=== PATIENT | female | born 1985 | race Caucasian/White ===

== ENCOUNTER 2021-05-24 22:21 | Emergency (ER) | payer OTHER ==
[~2021-05-24] VITALS: Ht 165.1 cm; Wt 81.7 kg
[2021-05-24 23:31] LABS: BASOPHILS ABSOLUTE AUTO 0.03 K/mm3 (0.00-0.23); BASOPHILS PERCENT AUTO 0 % (0-2); EOSINOPHILS ABSOLUTE AUTO 0.09 K/mm3 (0.00-0.68); EOSINOPHILS PERCENT AUTO 1 % (0-6); Hematocrit 39.8 % (33.0-51.0); IMMATURE GRAN ABSOLUTE AUTO 0.03 K/mm3 (0.00-0.10); IMMATURE GRAN PERCENT AUTO 0 % (0-1); LYMPHOCYTES ABSOLUTE AUTO 2.64 K/mm3 (0.84-5.20); LYMPHOCYTES PERCENT AUTO 24 % (21-46); MONOCYTES ABSOLUTE AUTO 0.87 K/mm3 (0.16-1.47); MONOCYTES PERCENT AUTO 8 % (4-13); Mean Corpuscular HGB 26.2 pg (26.0-34.0); Mean Corpuscular HGB Conc 32.7 g/dL (31.5-36.5); Mean Corpuscular Volume 80 fL (80-100); Mean Platelet Volume 9.4 fL (9.1-12.4); NEUTROPHILS ABSOLUTE AUTO 7.21 K/mm3 (1.96-9.15); NEUTROPHILS PERCENT AUTO 66 % (41-73); Platelet Count 394 K/mm3 (150-400); RDW Coefficient Variation 16.9 % (11.7-14.2); RDW Standard Deviation 48.4 fL (35.1-46.3); Red Blood Cell Count 4.96 M/mm3 (3.80-5.20); White Blood Cell Count 10.87 K/mm3 (4.00-11.30)
[2021-05-24 23:52] LABS: Alanine Aminotransfer (ALT/SGP 15 U/L (12-78); Albumin/Globulin Ratio 0.8 (0.8-1.8); Alk Phos 73 U/L (50-136); Anion Gap 6 mmol/L (6-16); Aspartate Aminotrans (AST/SGOT <3 U/L (12-37); Bilirubin, Total 0.4 mg/dL (0.1-1.0); Blood Urea Nitrogen 17 mg/dL (8-24); Bun/Creatinine Ratio 22.3 (12.0-20.0); CO2, Blood 25 mmol/L (21-32); Calcium, Blood 8.8 mg/dL (8.5-10.1); Chloride, Blood 108 mmol/L (98-108); Creatinine, Blood 0.76 mg/dL (0.40-1.00); Globulin, Blood 3.9 g/dL (2.2-4.0); Glomerular Filtration Rate >60 (60-); Glucose, Blood 122 mg/dL (70-99); Potassium, Blood 2.9 mmol/L (3.5-5.5); Sodium, Blood 139 mmol/L (136-145); Total Protein, Blood 6.9 g/dL (6.4-8.2)
[2021-05-25] MEDS ORDERED: PRED20 PO (02:16)
== END 2021-05-25 03:20 | disposition home or self-care (01) ==
LOC: ER 22:21
PROVIDERS: Student in an Organized Health Care Education/Training Program
DX: N83.202 Unspecified ovarian cyst, left side (principal); K50.90 Crohn's disease, unspecified, without complications; K92.1 Melena; Z88.6 Allergy status to analgesic agent
CPT/HCPCS: 74177; 76856; 80053; 82272; 84703; 85025; 85651; 86141; 86850; 86900; 86901; 96365; 96366; 96375; 96376; 99285-25; A9270; J1170; J2270; J2405; J3480; J7030; J7512; Q9967

== ENCOUNTER 2021-05-28 14:00 | Inpatient (IN) | payer OTHER ==
[~2021-05-28] VITALS: Ht 165.1 cm; Wt 79.7 kg
[~2021-05-28 14:00] MED LIST: PRED20 PO
[2021-05-28] MEDS ORDERED: AMOX500 PO (14:12)
[2021-05-28] MEDS ORDERED: ONDA4ODT MM (14:13)
[2021-05-28] MEDS ORDERED: DICY20 PO (14:13)
[2021-05-28] MEDS ORDERED: CATAPRES0.1 MG PO (14:13)
[2021-05-28] MEDS ORDERED: HYDPAM50 PO (14:14)
[2021-05-28] MEDS ORDERED: TRAZ50 PO (14:14)
[2021-05-28 14:44] LABS: BASOPHILS ABSOLUTE AUTO 0.03 K/mm3 (0.00-0.23); BASOPHILS PERCENT AUTO 0 % (0-2); EOSINOPHILS ABSOLUTE AUTO 0.05 K/mm3 (0.00-0.68); EOSINOPHILS PERCENT AUTO 1 % (0-6); Hematocrit 40.6 % (33.0-51.0); IMMATURE GRAN ABSOLUTE AUTO 0.02 K/mm3 (0.00-0.10); IMMATURE GRAN PERCENT AUTO 0 % (0-1); LYMPHOCYTES ABSOLUTE AUTO 1.93 K/mm3 (0.84-5.20); LYMPHOCYTES PERCENT AUTO 21 % (21-46); MONOCYTES ABSOLUTE AUTO 0.74 K/mm3 (0.16-1.47); MONOCYTES PERCENT AUTO 8 % (4-13); Mean Corpuscular HGB 26.5 pg (26.0-34.0); Mean Corpuscular Volume 83 fL (80-100); Mean Platelet Volume 8.7 fL (9.1-12.4); NEUTROPHILS ABSOLUTE AUTO 6.44 K/mm3 (1.96-9.15); NEUTROPHILS PERCENT AUTO 70 % (41-73); Platelet Count 397 K/mm3 (150-400); RDW Coefficient Variation 16.9 % (11.7-14.2); RDW Standard Deviation 50.8 fL (35.1-46.3); Red Blood Cell Count 4.91 M/mm3 (3.80-5.20); White Blood Cell Count 9.21 K/mm3 (4.00-11.30)
[2021-05-28 15:03] LABS: Alanine Aminotransfer (ALT/SGP 19 U/L (12-78); Albumin/Globulin Ratio 0.8 (0.8-1.8); Alk Phos 69 U/L (50-136); Anion Gap 4 mmol/L (6-16); Aspartate Aminotrans (AST/SGOT 8 U/L (12-37); Bilirubin, Total 0.2 mg/dL (0.1-1.0); Blood Urea Nitrogen 9 mg/dL (8-24); Bun/Creatinine Ratio 16.9 (12.0-20.0); CO2, Blood 27 mmol/L (21-32); Calcium, Blood 8.9 mg/dL (8.5-10.1); Chloride, Blood 107 mmol/L (98-108); Creatinine, Blood 0.53 mg/dL (0.40-1.00); Globulin, Blood 3.8 g/dL (2.2-4.0); Glomerular Filtration Rate >60 (60-); Glucose, Blood 146 mg/dL (70-99); Sodium, Blood 138 mmol/L (136-145); Total Protein, Blood 6.8 g/dL (6.4-8.2)
--- NOTE | 2021-05-28 20:04 | NUR ---
TRANSFER NOTE REPORT FROM DAVEY SANABRIA RN. PT TO ROOM BY CHRIS. PT AMBULATES FROM HALLWAY TO BED WITHOUT DIFFICULTY. PT ORIENTED TO CALL LIGHT, ROOM, AND UNIT. CALL LIGHT IN REACH. BED IN LOWEST POSITION.
[2021-05-28 23:22] LABS: Adenovirus F 40/41 Not Detected (NOT DETECT); Astrovirus Not Detected (NOT DETECT); Campylobacter Sp Not Detected (NOT DETECT); Cryptosporidium Not Detected (NOT DETECT); Cyclospora Cayetanensis Not Detected (NOT DETECT); E. Coli O157 Not Detected (NOT DETECT); Entamoeba Histolytica Not Detected (NOT DETECT); Enteroaggregative E. coli-EAEC Not Detected (NOT DETECT); Enteropathogenic E. coli-EPEC Not Detected (NOT DETECT); Enterotoxigenic E. coli-ETEC Not Detected (NOT DETECT); Giardia Lamblia Not Detected (NOT DETECT); Norovirus GI/GII Not Detected (NOT DETECT); Plesiomonas Shigelloides Not Detected (NOT DETECT); Rotavirus A Not Detected (NOT DETECT); Salmonella Sp Not Detected (NOT DETECT); Sapovirus Not Detected (NOT DETECT); Shiga Toxin-prod E. coli-STEC Not Detected (NOT DETECT); Shigella/Enteroin E. coli-EIEC Not Detected (NOT DETECT); Vibrio Cholerae Not Detected (NOT DETECT); Vibrio Sp Not Detected (NOT DETECT); Yersinia Enterocolitica Not Detected (NOT DETECT)
[2021-05-29 04:35] LABS: BASOPHILS ABSOLUTE AUTO 0.01 K/mm3 (0.00-0.23); BASOPHILS PERCENT AUTO 0 % (0-2); EOSINOPHILS PERCENT AUTO 0 % (0-6); Hematocrit 41.4 % (33.0-51.0); Hemoglobin 13.3 g/dL (11.5-16.0); IMMATURE GRAN ABSOLUTE AUTO 0.07 K/mm3 (0.00-0.10); IMMATURE GRAN PERCENT AUTO 1 % (0-1); LYMPHOCYTES ABSOLUTE AUTO 1.01 K/mm3 (0.84-5.20); LYMPHOCYTES PERCENT AUTO 8 % (21-46); MONOCYTES PERCENT AUTO 1 % (4-13); Mean Corpuscular HGB 26.2 pg (26.0-34.0); Mean Corpuscular HGB Conc 32.1 g/dL (31.5-36.5); Mean Corpuscular Volume 82 fL (80-100); Mean Platelet Volume 9.4 fL (9.1-12.4); NEUTROPHILS PERCENT AUTO 91 % (41-73); Platelet Count 411 K/mm3 (150-400); RDW Coefficient Variation 16.6 % (11.7-14.2); RDW Standard Deviation 49.2 fL (35.1-46.3); Red Blood Cell Count 5.07 M/mm3 (3.80-5.20); White Blood Cell Count 12.79 K/mm3 (4.00-11.30)
[2021-05-29 04:51] LABS: Anion Gap 5 mmol/L (6-16); Blood Urea Nitrogen 7 mg/dL (8-24); CO2, Blood 26 mmol/L (21-32); Calcium, Blood 9.1 mg/dL (8.5-10.1); Chloride, Blood 106 mmol/L (98-108); Creatinine, Blood 0.44 mg/dL (0.40-1.00); Glomerular Filtration Rate >60 (60-); Glucose, Blood 126 mg/dL (70-99); Phosphorus, Blood 2.7 mg/dL (2.5-4.9); Sodium, Blood 137 mmol/L (136-145)
--- NOTE | 2021-05-29 05:41 | NUR ---
HOSPITALIST CONTACTED REGARDING PT'S COMPLAINT OF PAIN AND THAT THE MEDICATIONS ARE NOT HELPING. EXPLAINED PT'S HISTORY TO DR BOYKIN WHO STATES THAT THE CURRENT PAIN REGIMEN IS SATISFACTORY UNTIL THE MORNING PROVIDER DOES ROUNDING. WILL DISCUSS WITH PT.
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
--- NOTE | 2021-05-29 16:36 | NUR ---
PT IS A/OX4, COOPERATIVE, THE PT APPEARS TO BE BREATHING EASILY ON RA AT THIS TIME, THE PT C/O ABD PAIN AND NAUSEA. THE PT WAS MEDICATED FOR PAIN THIS AM WITH 0.5MG OF IV DILAUDID, 30 MIN LATER THE PT WAS LAYING ON THE BATHROOM FLOOR IN HER ROOM STATEING THAT THE PAIN MEDICATION WAS NOT ENOUGH AND THAT SHE WANTED TO SPEAK WITH THE DOCTOR. A CALL WAS MADE TO AND THE PTS PAIN MEDICATION WAS INCREASED TO 1MG Q4HR IV DILAUDID. OXYCODONE 5 MG WAS GIVEN ONCE FOR BREAKTHROUGH PAIN, OTHERWISE,THE PT SEEMS TO HAVE BETTER PAIN CONTROL SO FAR TODAY. PT WAS ENCOURAGED TO REDUCE HER ORAL INTAKE WITH HER PAIN OUT OF CONTROL. CALL LIGHT IN REACH, WILL CONTINUE TO MONITOR AND ASSESS FOR CHANGES
--- NOTE | 2021-05-29 22:05 | NUR ---
PT C/O OF ABD PAIN. DILAUDID GIVEN. PT REPORTS MINIMAL RELIEF FROM DILAUDID. OFFERED ROXICODONE FOR BREAKTRHOUGH PAIN. PT REFUSED. OBSERVED RESTING IN BED NOW WITH EYES CLOSED. RESP UNLABORED. WILL CONTINUE TO MONITOR.
--- NOTE | 2021-05-30 04:26 | NUR ---
AAO. PAIN FINALLY CONTROLLED WITH DILAUDID PRN. ZOFRAN GIVEN X1 FOR NAUSEA WITH GOOD EFFECT. NO EPISODE OF VOMITING. CALL LIGHT WITHIN REACH. WILL CONTINUE TO MONITOR.
--- NOTE | 2021-05-30 16:31 | NUR ---
SHIFT SUMMARY PATIENT MEDICATED FOR PAIN X3. PATIENT MEDICATED FOR NAUSEA X1. PATIENT DENIES SHORTNESS OF BREATH. IV PAIN MEDICATION CHANGED TO PO FOR POSSIBLE DISCHARGE. PER DR. FOOTE, PATIENT WILL PROBABLY DISCHARGE TOMORROW. PATIENT IS INDEPENDENT IN ROOM. NEW IV PLACED IN LEFT WRIST THIS MORNING. PATIENT IS EATING AND DRINKING WELL. PATIENT IS PLEASANT AND COOPERATIVE WITH CARE. PATIENT CHANGED TO A REGULAR DIET, PATIENT IS TOLERATING WELL.
--- NOTE | 2021-05-31 01:11 | NUR ---
SHIFT SUMMARY AOX4. VSS. ABD SOFT NON TENDER TO PALPATION, TOLERATING DIET. REPORTS 10/10 PAIN ALL OVER ABD, UNABLE TO DESCRIBE PAIN. STATES "IT JUST HURTS." OFFERED PO DILAUDID & PT REFUSED TO TAKE PO PAIN MEDS, STATING "THEY DONT WORK" & ASKED FOR IV PAIN MEDS. INFORMED PT WE WOULD NEED TO TRY THE FULL 4MG PO DILAUDID BEFORE THE DR WOULD ORDER ANYTHING ELSE. ROUGHLY 1 HR LATER PT ASKED TO TRY PO PAIN MEDICATION. PT CURRENTLY RESTING WELL. PT REPORTED SHE HAD EMESIS 1X, NONE SEEN, GAVE ZOFRAN PER EMAR. CALL LIGHT IN REACH. HANDED OFF CARE & GAVE REPORT TO ESPINOZA Villalobos RN.
--- NOTE | 2021-05-31 02:35 | NUR ---
0105 TOOK OVER CARE OF PT FROM RICHY, PT LYING IN BED, EYES CLOSED, APPEARS TO BE RESTING. BREATHING IS EVEN, UNLABORED. NO APPARENT SIGNS OF DISTRESS. CALL LIGHT IS IN REACH.
--- NOTE | 2021-05-31 02:48 | NUR ---
PT LYING IN BED, EYES CLOSED, APPEARS TO BE RESTING. BREATHING IS EVEN, UNLABORED. NO APPARENT SIGNS OF DISTRESS. CALL LIGHT IS IN REACH.
--- NOTE | 2021-05-31 04:29 | NUR ---
PT REQUESTED AND RECIVED PAIN MEDS AND ATIVAN AT 0307, PT IS NOW LYING IN BED, EYES CLOSED, APPEARS TO BE RESTING. BREATHING IS EVEN, UNLABORED. NO APPARENT SIGNS OF DISTRESS. CALL LIGHT IS IN REACH.
--- NOTE | 2021-05-31 06:00 | NUR ---
PT LYING IN BED, EYES CLOSED, APPEARS TO BE RESTING. BREATHING IS EVEN, UNLABORED. NO APPARENT SIGNS OF DISTRESS. CALL LIGHT IS IN REACH. NO OTHER CHANGES THIS SHIFT.
[2021-05-31] MEDS ORDERED: AMLO5 PO (10:38)
[2021-05-31] MEDS ORDERED: HYDMOR4 PO (10:39)
[2021-05-31] MEDS ORDERED: Prednisone10 MG PO (10:41)
--- NOTE | 2021-05-31 11:17 | NUR ---
DISCHARGE PATIENT TRANSPORTED VIA WHEELCHAIR TO PRIVATE VEHICLE. DISCHARGE INSTRUCTIONS EXPLAINED TO PATIENT. PATIENT STATED UNDERSTANDING. PACKET SENT WITH PATIENT. IV REMOVED WITHOUT DIFFICULTY. HARD SCRIPT FOR DILAUDID SENT WITH PATIENT. BELONGINGS SENT WITH PATIENT. MEDICATIONS FAXED TO [facility]ERR[facility] PHARM[facility]. PATIENT TO ESTABLISH PCP FOR FOLLOW UP.
== END 2021-05-31 11:14 | disposition home or self-care (01) | DRG 387 ==
LOC: ER 14:00 → MEDS 18:01
PROVIDERS: Emergency Medicine; ADMIT Internal Medicine
DX: K50.90 Crohn's disease, unspecified, without complications (principal); I10 Essential (primary) hypertension; F11.10 Opioid abuse, uncomplicated; Z88.8 Allergy status to other drugs, medicaments and biological substances; Z90.49 Acquired absence of other specified parts of digestive tract; Z23 Encounter for immunization; Z98.51 Tubal ligation status; Z98.890 Other specified postprocedural states; Z79.899 Other long term (current) drug therapy; N83.209 Unspecified ovarian cyst, unspecified side
CPT/HCPCS: 0097U; 36415; 74177; 80053; 80069; 83690; 83993; 84702; 85025; 86304; 89055; 96374; 96375; 99285-25; A9270; J1170; J2405; J2930; J7030; J7120; J7512; Q9967